=== PATIENT | male | born 1965 | race Caucasian/White ===

== ENCOUNTER 2020-05-07 12:08 | Emergency (ER) | payer OTHER ==
[2020-05-07 12:42] VITALS: BP 121/66
--- NOTE | 2020-05-07 13:26 | ED Physician Documentation ---
PD HPI LOWER EXT INJURY - Stated complaint Stated Complaint: LT LEG INJURY - Chief complaint Chief Complaint: Ext Problem - History obtained from History obtained from: Patient - History of Present Illness PD HPI LOW EXT INJURY LOCATION: Left (55-year-old gentleman with history of right hip replacement was hiking down a slope today, his right leg gave out and he felt a pop in the left thigh with moderate pain only with motion now. He is comfortable at rest.) Review of Systems Constitutional: reports: Reviewed and negative Eyes: reports: Reviewed and negative Ears: reports: Reviewed and negative Nose: reports: Reviewed and negative Throat: reports: Reviewed and negative PD PAST MEDICAL HISTORY - Allergies Allergies/Adverse Reactions: Allergies Allergy/AdvReac Type Severity Reaction Status Date / Time No Known Drug Allergies Allergy Verified 05/07/20 12:42 PD ED PE NORMAL - Vitals Vital signs reviewed: Yes - General General: Alert and oriented X 3, No acute distress - Abdomen Abdomen: Non tender - Extremities Extremities: Other (Some muscular tenderness of the anterior left thigh, but full strength in knee extension. LVH forced flexion of the left knee does cause some pain. Internal/external rotation of the hip is painless. No deformity. No tenderness of the knee or hip primarily.) - Neuro Neuro: Alert and oriented X 3, Normal speech Results - Vitals Vitals: Vital Signs - 24 hr 05/07/20 12:37 Temperature 36.9 C Heart Rate 56 L Respiratory 16 Rate Blood Pressure 121/66 O2 Saturation 97 Oxygen O2 Source Room air PD MEDICAL DECISION MAKING - ED course ED course: Consistent with a partial quadricep strain or tear. Conservative care and as needed orthopedic follow-up was advised. Departure - Departure Disposition: 01 Home, Self Care Clinical Impression: Quadriceps muscle strain Qualifiers: Encounter type: initial encounter Laterality: left Qualified Code(s): S76.112A - Strain of left quadriceps muscle, fascia and tendon, initial encounter Condition: Good Record reviewed to determine appropriate education?: Yes Instructions: ED Strain Muscle Ext Comments: Ibuprofen, heat and gentle stretching, if not better in 2 weeks follow-up with an orthopedist for further evaluation and treatment.
== END 2020-05-07 13:42 | disposition home or self-care (01) ==
LOC: ED 12:08
DX: S76.112A Strain of left quadriceps muscle, fascia and tendon, initial encounter (principal); W10.2XXA Fall (on)(from) incline, initial encounter; Y93.01 Activity, walking, marching and hiking; Y92.828 Other wilderness area as the place of occurrence of the external cause; Z96.641 Presence of right artificial hip joint
CPT/HCPCS: 99281; 99282